=== PATIENT | male | born 1990 | race Caucasian/White ===

== ENCOUNTER 2018-09-15 21:32 | Emergency (ER) | payer SELFPAY ==
[2018-09-15] MEDS ORDERED: PREDNISONE 20 MG TABLET PO ONE (22:08)
[2018-09-15] MEDS ORDERED: IPRATROPIUM/ALBUTEROL 0.5-2.5 MG/3 ML AMPUL NEB ONE ×2 (22:08→23:09)
[2018-09-15] MEDS: MAGNESIUM SULFATE/D5W 1 GM/100 ML RTUPB IV SCH ×2 (23:14→23:30)
[2018-09-16] MEDS ORDERED: ALBUTEROL SULFATE 0.083% NEB 2.5 MG/3 ML AMPUL NEB ONE (01:13)
--- NOTE | 2018-09-16 01:14 | ER Document Report ---
ED General - General Chief Complaint: Asthma Exacerbation Stated Complaint: DIFFICULTY BREATHING Time Seen by Provider: 09/15/18 22:05 Notes: Patient is a pleasant 27-year-old male who presents with complaint of difficulty breathing and wheezing. He has a history of asthma. He has not seen a doctor in some time and says occasionally when he feels short of breath he will go and borrow one of his family members inhalers. The last few days his wheezing is gotten worse and the inhalers are not working and therefore is come to the ER. No fevers. Some congestion. Some cough. No coughing up of blood. He denies any medical allergies. He has no other complaints at this time. TRAVEL OUTSIDE OF THE [place] IN LAST 30 DAYS: No Past Medical History - Social History Smoking Status: Never Smoker Frequency of alcohol use: None Drug Abuse: None Family History: Reviewed & Not Pertinent Patient has suicidal ideation: No Patient has homicidal ideation: No Pulmonary Medical History: Reports: Hx Asthma Renal/ Medical History: Denies: Hx Peritoneal Dialysis Review of Systems - Review of Systems Notes: My Normal Review Basic REVIEW OF SYSTEMS: CONSTITUTIONAL : Denies fever, chills, or sweats. Denies recent illness. EENT: Denies eye, ear, throat, or mouth pain or symptoms. Denies nasal or sinus congestion. CARDIOVASCULAR: Denies chest pain. RESPIRATORY: Wheezing and difficulty breathing. GASTROINTESTINAL: Denies abdominal pain. Denies nausea, vomiting, or diarrhea. MUSCULOSKELETAL: Denies neck or back pain or joint pain or swelling. SKIN: Denies rash or skin lesions. NEUROLOGICAL: Denies altered mental status or loss of consciousness. Denies headache. Denies weakness or paralysis or loss of use of either side. Denies problems with gait or speech. Denies sensory or motor loss. ALL OTHER SYSTEMS REVIEWED AND NEGATIVE. Physical Exam - Vital signs Vitals: Temp Pulse Resp BP Pulse Ox 97.7 F 132 H 36 H 134/85 H 90 L 09/15/18 21:47 09/15/18 21:47 09/15/18 21:47 09/15/18 21:47 09/15/18 21:47 - Notes Notes: General Appearance: Well nourished, alert, cooperative, mild acute distress, no obvious discomfort. Vitals: reviewed, See vital signs table. Head: no swelling or tenderness to the head Eyes: PERRL, EOMI, Conjuctiva clear Mouth: No decreasd moisture Throat: No tonsillar inflammation, No airway obstruction, No lymphadenopathy Neck: Supple, no neck tenderness, No thyromegaly Lungs: Diffuse wheezing and rhonchi with poor air exchange. Some mild accessory muscle use. Heart: Tachycardic rate, Regular rythm, No murmur, no rub Abdomen: Normal BS, soft, No rigidity, No abdominal tenderness, No guarding, no rebound, no abdominal masses, no organomegaly Extremities: good pulses in all extremities, no swelling or tenderness in the extremities, no edema. Skin: warm, dry, appropriate color, no rash Neuro: speech clear, oriented x 3, normal affect, responds appropriately to questions. Course - Re-evaluation Re-evalutation: 09/16/18 01:13 Patient continues to have a lot of tightness and wheezing on exam. He says he is feeling improved however his lung auscultation still fairly poor. He still had on 2 L of oxygen his oxygen saturation is 92%. We will turn down his oxygen to see if he desaturates. If he desaturates L turned back on. I will give him another breathing treatment. I have ordered blood work anticipating that he may require observation admission. 09/16/18 02:55 Shunts work of breathing is normalized however he still has a lot of tightness and wheezing in his lung aburto and his oxygen saturation is only 91%. Informed him that I recommended admission as I feel that if he goes home that there is a high likelihood that his wheezing will get worse and that he be right back. Patient understands this but said they want to think about it before agreeing to admission. I waited 30 minutes went back to talk to the patient. Patient says that he does not want to be admitted just yet and would like to just rest here for a bit and see how his breathing does before making a decision as to whether or not to stay as I recommended were to go home. I will continue to monitor the patient. 09/16/18 04:25 Reevaluation patient says that he does not was stating that he wants to go home. He is feeling well. He has no increased work of breathing, he still has some what tachycardic which she thinks might relate to all the breathing treatments receive, his oxygen saturation is still 91-93%. I still encouraged him to stay but the patient still wants to go home. Lung auscultation continues to improve but he still has a decent amount of wheezing but his air exchange is much improved. At this time will discharge patient home as he request. I strongly encouraged him to return to ER anytime for reevaluation as we want what is best form and were happy to recheck him any time. Patient is made aware of this and he is appreciative of it and said that he will come back immediately if he feels he is worsening. Patient will be sent home with an albuterol inhaler and a spacer and a prescription for prednisone. Patient is awake and alert and a nswers all questions appropriately and shows capacity to make his own decision. - Vital Signs Vital signs: Temp Pulse Resp BP Pulse Ox 97.7 F 132 H 21 H 119/72 94 09/15/18 21:47 09/15/18 21:47 09/16/18 04:00 09/16/18 04:00 09/16/18 04:00 - Laboratory Result Diagrams: 09/16/18 01:20 09/16/18 01:20 Laboratory results interpreted by me: 09/16/18 09/16/18 01:20 01:20 WBC 11.4 H Seg Neuts % (Manual) 94 H Lymphocytes % (Manual) 4 L Monocytes % (Manual) 2 L Abs Neuts (Manual) 10.7 H Sodium 136.1 L Glucose 216 H Discharge - Discharge Clinical Impression: Wheezing Asthma exacerbation Qualifiers: Asthma severity: unspecified severity Asthma persistence: unspecified Qualified Code(s): J45.901 - Unspecified asthma with (acute) exacerbation Condition: Stable Disposition: HOME, SELF-CARE Additional Instructions: ASTHMA: You have been diagnosed as having asthma. This is a condition where there is episodic tightness in the bronchial tubes. Allergies, infections, and pollut ed or cold air may be contributing factors. Emergency treatment of a severe asthma attack may include adrenaline shots, or bronchodilator aerosol. You may feel lightheaded, have a decreased exercise tolerance and a rapid pulse for an hour or two. Rest and get plenty of fluids. Home treatment of asthma requires bronchodilator drugs. These can be administered by injection, inhalation, or by mouth. Antibiotics and corticosteroids may be required for some patients. You should avoid chemical fumes, dusts, pollens, and exercising in very cold or dry air. If you smoke, stop!! If you develop a fever, increased wheezing, chest pain, or severe shortness of breath, you should contact the doctor immediately. STEROID MEDICATION: You have been given an injection of or oral medicine of the cortisone/steroid class. This medication is used to control inflammation or allergy. Jonh t is usually only given for a short period of time, until the acute process subsides. There are usually no side effects from short-term use of cortisone-like medications. Some persons feel an increased sense of well-being and are not sleepy at bedtime. Long-term use of cortisone medications is best avoided, unless required for a severe condition. If your condition does not remit, or re lapses after the course of corticosteroid medication, you should consult your physician. INHALED BRONCHODILATORS: You have received treatment(s) of and/or prescription for an inhaled bronchodilator -- a medication which stimulates the airways in the lung to dilate. This improves the flow of air in asthma, bronchitis, and emphysema. These medicines have some similarity to adrenaline, and can cause similar side effects: shakiness, racing heart, and a sense of nervousness. These side effects decrease with time. Contact your doctor if these side effects are severe. Do not over-use the medicine. Too-frequent use of the inhaler may make it ineffective. Call your doctor if the inhaler is not controlling your symptoms at the prescribed doses. SMOKING: If you smoke, you should stop smoking. The tar and chemicals in cigarette smoke are harmful. Smoking has been shown to cause: emphysema chronic bronchitis lung cancer mouth and throat cancer stomach and pancreas cancer premature aging defects In addition, smoking increases ear and lung infections in children of smokers. FOLLOW-UP CARE: If you have been referred to a physician for follow-up care, call the physicians office for an appointment as you were instructed or within the next two days. If you experience worsening or a significant change in your symptoms, notify the physician immediately or return to the Emergency Department at any time for re-evaluation. As discussed with you, we prefer that you stay in the hospital as an observation admission to make sure that your lung aburto clear. We respect your right to make a decision to go home. We want what is best for you so please have a low threshold to return to ER if you have current wheezing or difficulty breathing that is not responding to your inhaler or if you feel that you are worse in any way. Prescriptions: Prednisone [Deltasone 20 mg Tablet] 3 tab PO DAILY 4 Days tablet
[2018-09-16 01:33] LABS: HEMOGLOBIN 14.8 g/dL (13.5-17.0); MEAN CORPUSCULAR HEMOGLOBIN 30.8 pg (27.0-33.4); MEAN CORPUSCULAR HGB CONC 34.3 g/dL (32.0-36.0); MEAN CORPUSCULAR VOLUME 90 fl (80-97); PLATELET COUNT 290 10^3/uL (150-450); RED CELL DISTRIBUTION WIDTH 13.5 % (11.5-14.0); WHITE BLOOD COUNT 11.4 10^3/uL (4.0-10.5)
[2018-09-16 01:46] LABS: ANION GAP 7 (5-19); BLOOD UREA NITROGEN 9 mg/dL (7-20); CALCIUM 9.1 mg/dL (8.4-10.2); CARBON DIOXIDE 23 mmol/L (22-30); CHLORIDE 106 mmol/L (98-107); GLUCOSE 216 mg/dL (75-110); POTASSIUM 3.8 mmol/L (3.6-5.0); SODIUM 136.1 mmol/L (137-145)
[2018-09-16 01:52] LABS: ABSOLUTE LYMPHOCYTES# (MANUAL) 0.5 10^3/uL (0.5-4.7); ABSOLUTE MONOCYTES # (MANUAL) 0.2 10^3/uL (0.1-1.4); ABSOLUTE NEUTROPHILS# (MANUAL) 10.7 10^3/uL (1.7-8.2); BASOPHILS % (MANUAL) 0 % (0-2); EOSINOPHILS % (MANUAL) 0 % (0-6); LYMPHOCYTES % (MANUAL) 4 % (13-45); MONOCYTES % (MANUAL) 2 % (3-13); PLATELET CLUMPS PRESENT; PLATELET COMMENT ADEQUATE; PLATELET LARGE PRESENT; POIKILOCYTOSIS SLIGHT; SCHISTOCYTES SLIGHT; SEGMENTED NEUTROPHILS % (MAN) 94 % (42-78); TEAR DROP CELLS 1+; TOTAL CELLS COUNTED 100; TOXIC GRANULATION 1+
[2018-09-16] MEDS ORDERED: ALBUTEROL SULFATE HFA (90 MCG/PUFF) 8 GM MDI (1 MDI/ER DISP) IH ONE (04:28)
[2018-09-16 04:43] VITALS: BP 122/86
== END 2018-09-16 04:43 | disposition home or self-care (01) ==
LOC: ER 21:32
DX: J45.901 Unspecified asthma with (acute) exacerbation (principal); R06.02 Shortness of breath
CPT/HCPCS: 94640 ×2; 99285; 96365; 36415; 85025; 80048; J3475; J7512; J3490; J7620

== ENCOUNTER 2019-06-06 12:56 | Emergency (ER) | payer OTHER ==
[2019-06-06] MEDS ORDERED: FAMOTIDINE 20 MG TABLET PO ONE (13:46)
--- NOTE | 2019-06-06 13:46 | ER Document Report ---
ED Allergic Reaction - General Chief Complaint: Allergic Reaction Stated Complaint: POSSIBLE ALLLERGIC REACTION Time Seen by Provider: 06/06/19 13:38 Mode of Arrival: Ambulatory Information source: Patient Notes: History of Present Illness Chief Complaint: Allergic Reaction 28 years old male was bitten by fire ants just prior to arrival, soon after he developed a rash and difficulty in breathing. EMS was called on route he was given Solu-Medrol and Benadryl. Currently feeling better, the breathing has improved no more tightness of the chest or difficulty in breathing. Rash is improved too. This is the first time he has been bitten by fire ants and subsequent reaction. History of asthma History obtained from patient Symptoms began: Immediately prior to arrival Onset: Gradual Timing: Constant Quality: As above Location: Generalized Intensity: Moderate Radiation: None Migration: None Aggravating factors: None Relieving factors: None Denies change in voice Denies inability to swallow Denies swelling of tongue or mouth Denies sensation of throat closing Able to tolerate PO Review of Systems: All other systems negative as reviewed. CONSTITUTIONAL No Fever. EYES No eye pain. ENT No sore throat CARDIOVASCULAR No chest pain. RESPIRATORY No SOB. GI No abdominal pain, no vomiting, no diarrhea. GENITOURINARY No dysuria. SKIN No rash. NEUROLOGIC No headache. MUSCULOSKELETAL No back pain. Physical Exam CONSTITUTIONAL Vital signs reviewed, Patient has normal respiratory rate, Well appearing, Patient appears comfortable, normal stature. HEAD Atraumatic, Normocephalic. EYES Eyes are normal to inspection. ENT Ears normal to inspection, Nose examination normal.Oropharynx examination normal-no mass, no swelling, no deviation. Tongue-normal NECK No jugular venous distention. RESPIRATORY CHEST Breath sounds normal, No respiratory distress. CARDIOVASCULAR RRR, No murmurs, Normal S1 S2, No rub, No gallop. ABDOMEN Abdomen is nontender, No masses, Bowel sounds normal, No distension, No peritoneal signs. BACK Normal inspection. UPPER EXTREMITY Right forearm at the extensor surface multiple small erythematous lesions were noted due to and bite. LOWER EXTREMITY Inspection normal. NEURO No focal motor deficits. SKIN Skin is warm, Skin is dry, Skin is normal color. PSYCHIATRIC Normal affect. TRAVEL OUTSIDE OF THE [place] IN LAST 30 DAYS: No - HPI Notes: Dictated - Related Data Allergies/Adverse Reactions: No Known Allergies Allergy (Unverified 06/06/19 13:15) Past Medical History - Social History Smoking Status: Never Smoker Frequency of alcohol use: None Drug Abuse: None Lives with: Family Family History: Reviewed & Not Pertinent Pulmonary Medical History: Reports: Hx Asthma Renal/ Medical History: Denies: Hx Peritoneal Dialysis Review of Systems - Review of Systems Notes: Dictated Physical Exam - Vital signs Vitals: Temp Resp BP Pulse Ox 97.9 F 23 H 152/72 H 95 06/06/19 13:17 06/06/19 13:17 06/06/19 13:06/06/19 13:17 - Notes Notes: Dictated Course - Re-evaluation Re-evalutation: 06/06/19 13:43 Given IV fluids, prescription for EpiPen - Vital Signs Vital signs: Temp Pulse Resp BP Pulse Ox 97.9 F 23 H 152/72 H 95 06/06/19 13:17 06/06/19 13:17 06/06/19 13:17 06/06/19 13:17 Discharge - Discharge Clinical Impression: Acute allergic reaction Qualifiers: Encounter type: initial encounter Qualified Code(s): T78.40XA - Allergy, unspecified, initial encounter Condition: Fair Disposition: HOME, SELF-CARE Instructions: Acute Allergic Reaction ([facility]) Prescriptions: Albuterol Sulfate [Albuterol Sulfate Hfa] 8.5 gm IH Q4 #1 [email or web address] Hydroxyzine HCl [Atarax 25 mg Tablet] 1 - 2 tab PO QID #25 tablet Epinephrine [Epipen 2-Jason] 0.3 mg IJ ASDIR PRN #2 auto.injct PRN Reason:
[2019-06-06 14:05] VITALS: BP 131/65
== END 2019-06-06 14:11 | disposition home or self-care (01) ==
LOC: ER 12:56
DX: T63.421A Toxic effect of venom of ants, accidental (unintentional), initial encounter (principal); R21 Rash and other nonspecific skin eruption; J45.909 Unspecified asthma, uncomplicated
CPT/HCPCS: 99283